=== PATIENT | female | born 1985 | race Caucasian/White ===

== ENCOUNTER → 2018-03-16 | Outpatient (CLI) | payer OTHER ==
--- NOTE | 2018-03-24 07:49 | HM ---
HOLTER MONITOR REPORT The patient was monitored for 24 hours. The baseline rhythm is a sinus mechanism with normal conduction. The average rate is 76 beats per minute, minimum 47, maximum 137 beats per minute. Ventricular ectopic activity was not present. Supraventricular ectopic activity was present in the form of rare single PACs. No diary was available. CONCLUSION: 1. Sinus mechanism baseline rhythm. 2. Rare supraventricular ectopic activity. 3. No ventricular ectopic activity. 4. No diary was available. MMODL / IJN: [id number] /
== END | disposition home or self-care (01) ==
LOC: RADECHMAIN 11:36
PROVIDERS: ATTEND Family Medicine
DX: I49.3 Ventricular premature depolarization (principal)
CPT/HCPCS: 93225; 93226

== ENCOUNTER 2020-10-31 05:17 | Emergency (ER) | payer BC, OTHER ==
[2020-10-31 05:31] VITALS: TEMP 98.7
[2020-10-31] MEDS ORDERED: ACETAMINOPHEN TAB 500 MG TAB PO STA (05:38)
[2020-10-31] MEDS ORDERED: ALBUTEROL HFA INHALER INHALATION STA (05:38)
[2020-10-31] MEDS ORDERED: DEXAMETHASONE SOD PHOSPHATE 10 MG/ML 1 ML VIAL IV STA (05:39)
[2020-10-31] MEDS ORDERED: KETOROLAC 15 MG/ML 1 ML VIAL IVP STA (05:39)
--- NOTE | 2020-10-31 05:40 | ED ---
SOB HPI - General Chief Complaint: Shortness of Breath Stated Complaint: SOB,Covid+ Time Seen by Provider: 10/31/20 05:37 Source: patient Mode of arrival: ambulatory Limitations: no limitations - Related Data Allergies Allergy/AdvReac Type Severity Reaction Status Date / Time raw vegetable Allergy Swelling Verified 10/31/20 05:31 Review of Systems ROS Statement: Those systems with pertinent positive or pertinent negative responses have been documented in the HPI. ROS Other: All systems not noted in ROS Statement are negative. Past Medical History Past Medical History: No Reported History History of Any Multi-Drug Resistant Organisms: None Reported Past Surgical History: Appendectomy Past Psychological History: No Psychological Hx Reported Smoking Status: Never smoker Past Alcohol Use History: None Reported Past Drug Use History: None Reported General Exam Limitations: no limitations Course Vital Signs 10/31/20 05:26 Temperature 98.7 F Pulse Rate 93 Respiratory 18 Rate Blood Pressure 100/68 O2 Sat by Pulse 95 Oximetry Medical Decision Making - EKG Data -: EKG Interpreted by Me (EKG is sinus rhythm 82 DE 160 QRS 84 QTc 422) Disposition Clinical Impression: Coronavirus infection Disposition: HOME SELF-CARE Condition: Good Instructions (If sedation given, give patient instructions): Coronavirus Disease 2019 (COVID-19) Is patient prescribed a controlled substance at d/c from ED?: No Referrals: Angeli Pedroza MD [Primary Care Provider] - 1-2 days
[2020-10-31 06:31] LABS: Basophils % (A) 1 %; Eosinophils % (A) 0 %; HCT 38.7 % (34.0-46.0); HGB 13.5 gm/dL (11.4-16.0); Lymphocytes # (A) 0.7 k/uL (1.0-4.8); Lymphocytes % (A) 20 %; MCH 30.1 pg (25.0-35.0); MCV 86.1 fL (80.0-100.0); Mean Platelet Volume 8.1; Monocytes # (A) 0.4 k/uL (0-1.0); Monocytes % (A) 12 %; Neutrophils # (A) 2.3 k/uL (1.3-7.7); Neutrophils % (A) 65 %; Platelet Count 141 k/uL (150-450); RDW 12.6 % (11.5-15.5); WBC 3.5 k/uL (3.8-10.6)
[2020-10-31 06:47] LABS: ALT 72 U/L (4-34); AST 51 U/L (14-36); African American GFR (CKD) >90 (>60 ml/min/1.73 sqM); Albumin 3.8 g/dL (3.5-5.0); Alkaline Phosphatase 69 U/L (38-126); Anion Gap 6 mmol/L; Blood Urea Nitrogen 9 mg/dL (7-17); C Reactive Protein 17.1 mg/L (<10.0); Calcium 8.5 mg/dL (8.4-10.2); Carbon Dioxide 28 mmol/L (22-30); Chloride 101 mmol/L (98-107); Glucose 103 mg/dL (74-99); LDH 669 U/L (313-618); Non-African American GFR(CKD) >90 (>60 ml/min/1.73 sqM); Potassium 3.6 mmol/L (3.5-5.1); Sodium 135 mmol/L (137-145); Total Bilirubin 0.7 mg/dL (0.2-1.3); Total Protein 6.9 g/dL (6.3-8.2)
[2020-10-31 06:53] LABS: INR 0.9 (<1.2); Partial Thromboplastin Time 24.4 sec (22.0-30.0)
--- NOTE | 2020-10-31 07:10 | XR ---
EXAM: XR Chest, 1 View CLINICAL HISTORY: Suspected COVID-19 pneumonia TECHNIQUE: Frontal view of the chest. COMPARISON: No relevant prior studies available. FINDINGS: Lungs: Unremarkable. No acute infiltration, atelectasis or mass. Pleural space: Unremarkable. No pneumothorax or pleural fluid. Heart: Unremarkable. No cardiomegaly. Mediastinum: Unremarkable. Bones/joints: No acute findings. IMPRESSION: No clear evidence of acute or active process in the chest.
[2020-10-31] MEDS ORDERED: BAMLANIVIMAB (EUA) 700 MG, ETESEVIMAB (EUA) 1,400 MG in SODIUM CHLORIDE 0.9% 50 ML IVPB ONE (07:20)
[2020-10-31 08:36] VITALS: BP 105/72; PULSE 94; RESP 18
== END 2020-10-31 09:16 | disposition home or self-care (01) ==
LOC: EC 05:17
DX: B34.2 Coronavirus infection, unspecified (principal)
CPT/HCPCS: 36415; 94640; 93005; 80053; 83605; 83615; 83735; 85025; 85610; 85730; 86140; 87040; 71045; 99285; 96365; 96375 ×2; J1100; J1885; Q0245

== ENCOUNTER → 2020-11-25 | Outpatient (CLI) | payer BC ==
--- NOTE | 2020-11-25 13:30 | MM ---
Reason for exam: screening (asymptomatic). Baseline mammogram. History: Took hormonal contraceptives for 1 year beginning at age 21. Physical Findings: Nurse did not find any significant physical abnormalities on exam. MG Screening Mammo w CAD Bilateral CC and MLO view(s) were taken. The breast tissue is heterogeneously dense. This may lower the sensitivity of mammography. Intramammary lymph nodes. These results were verbally communicated with the patient and result sheet given to the patient on 11/25/20. ASSESSMENT: Benign, BI-RAD 2 RECOMMENDATION: Routine screening mammogram of both breasts at age 40.
== END | disposition home or self-care (01) ==
LOC: RADMAMWWP 12:56
PROVIDERS: ATTEND Family Medicine
DX: Z12.31 Encounter for screening mammogram for malignant neoplasm of breast (principal)
CPT/HCPCS: 77067